=== PATIENT | female | born 1955 | race Caucasian/White ===

== ENCOUNTER 2020-09-27 13:43 | Outpatient (REF) | payer MEDICAID, SELFPAY ==
--- NOTE | ~2020-09-27 | MM_ITS ---
EXAMINATION: MM SCREENING DIGITAL BREAST TOMOSYNTHESIS, BILATERAL CLINICAL INFORMATION: Screening. Asymptomatic. The lifetime risk of breast cancer based on the Tyrer-Cuzick Model is 4.40%. COMPARISON: Mammography: February 04, 2018 and studies dating back to June 12, 2011 TECHNIQUE: Digital breast tomosynthesis is performed in both the craniocaudal and mediolateral oblique views along with computer-aided detection (CAD). Synthesized 2D images are generated from the tomosynthesis. FINDINGS: There are scattered areas of fibroglandular density (ACR BI-RADS breast composition Category b). There are no significant masses, abnormal calcifications, or other abnormalities. MM/MM tomosynthesis screening BI IMPRESSION: There are no significant changes from prior study. ASSESSMENT: BI-RADS 1: Negative RECOMMENDATION: Routine annual mammography screening. This patient's information was entered into a reminder system with a target due date for their next mammogram.
== END 2020-09-27 13:44 | disposition home or self-care (01) ==
LOC: HO.MAMMO 13:43
PROVIDERS: Visit Provider Internal Medicine
DX: Z12.31 Encounter for screening mammogram for malignant neoplasm of breast (principal)
CPT/HCPCS: 77063; 77067

== ENCOUNTER 2021-10-02 14:11 | Outpatient (REF) | payer MEDICAID, SELFPAY ==
--- NOTE | ~2021-10-02 | MM_ITS ---
EXAMINATION: MM SCREENING DIGITAL BREAST TOMOSYNTHESIS, BILATERAL CLINICAL INFORMATION: Screening. Asymptomatic. The lifetime risk of breast cancer based on the Tyrer-Cuzick Model is 5%. COMPARISON: Mammography: 09/27/2020, 02/04/2018, 01/21/2017 TECHNIQUE: Digital breast tomosynthesis is performed in both the craniocaudal and mediolateral oblique views along with computer-aided detection (CAD). Synthesized 2D images are generated from the tomosynthesis. FINDINGS: There are scattered areas of fibroglandular density (ACR BI-RADS breast composition Category b). There are no significant masses, abnormal calcifications, or other abnormalities. There is stable regional parenchymal asymmetry posterior 11:00 left breast and also upper outer left breast similar to prior studies. There is no developing density or interval architectural abnormality. The axilla and skin contours are unremarkable. MM/MM tomosynthesis screening BI IMPRESSION: No significant changes from prior studies. ASSESSMENT: BI-RADS 2: Benign RECOMMENDATION: Routine annual mammography screening. This patient's information was entered into a reminder system with a target due date for their next mammogram.
== END 2021-10-02 14:12 | disposition home or self-care (01) ==
LOC: HO.MAMMO 14:11
PROVIDERS: PCP Internal Medicine; Visit Provider Internal Medicine
DX: Z12.31 Encounter for screening mammogram for malignant neoplasm of breast (principal)
CPT/HCPCS: 77063; 77067

== ENCOUNTER 2022-10-10 14:41 | Outpatient (REF) | payer OTHER, SELFPAY ==
--- NOTE | ~2022-10-10 | MM_ITS ---
EXAMINATION: MM SCREENING DIGITAL BREAST TOMOSYNTHESIS, BILATERAL CLINICAL INFORMATION: Screening. Asymptomatic. The lifetime risk of breast cancer based on the Tyrer-Cuzick Model is 6%. COMPARISON: Mammography: 10/02/2021, 09/27/2020, 02/04/2018 TECHNIQUE: Digital breast tomosynthesis is performed in both the craniocaudal and mediolateral oblique views along with computer-aided detection (CAD). Synthesized 2D images are generated from the tomosynthesis. FINDINGS: The breasts are heterogeneously dense, which may obscure small masses (ACR BI-RADS breast composition Category c). Parenchymal pattern is similar to prior studies and there is no developing density or architectural abnormality. There are scattered minor asymmetries similar to prior studies. Bilateral vascular calcifications and scattered benign round and rim calcifications are again noted. There are no significant masses, abnormal calcifications, or other abnormalities. The axilla and skin contours are unremarkable. MM/MM tomosynthesis screening BI IMPRESSION: No mammographic evidence of malignancy. ASSESSMENT: BI-RADS 2: Benign RECOMMENDATION: Routine annual mammography screening. This patient's information was entered into a reminder system with a target due date for their next mammogram.
== END 2022-10-10 14:42 | disposition home or self-care (01) ==
LOC: HO.MAMMO 14:41
PROVIDERS: PCP Internal Medicine; Visit Provider Internal Medicine
DX: Z12.31 Encounter for screening mammogram for malignant neoplasm of breast (principal)
CPT/HCPCS: 77063; 77067

== ENCOUNTER 2022-10-24 11:26 | Outpatient (REF) | payer OTHER, SELFPAY ==
--- NOTE | ~2022-10-24 | XR_ITS ---
EXAMINATION: XR FOOT, RIGHT CLINICAL INFORMATION: Pain COMPARISON: None available. TECHNIQUE: AP, lateral, and oblique views of the right foot. FINDINGS: Bone alignment is normal. No fracture or dislocation. Small osteophytes at the first MTP joint and navicular cuneiform joint. Small plantar calcaneal spur. Soft tissue arterial calcification. XR/XR foot RT min 3V IMPRESSION: Mild degenerative changes. Some atherosclerotic disease.
== END 2022-10-24 11:27 | disposition home or self-care (01) ==
LOC: HO.HHCX 11:26
PROVIDERS: Visit Provider Internal Medicine
DX: M79.671 Pain in right foot (principal)
CPT/HCPCS: 73630

== ENCOUNTER 2023-02-12 11:34 | Outpatient (REF) | payer OTHER, SELFPAY ==
--- NOTE | ~2023-02-12 | XR_ITS ---
EXAMINATION: XR SHOULDER, RIGHT CLINICAL INFORMATION: Right shoulder arthritis COMPARISON: None available. TECHNIQUE: AP external rotation, Grashey, scapular Y, and axillary views of the right shoulder. FINDINGS: There is moderate hypertrophic osteoarthritis of acromioclavicular joint. Glenohumeral joint is normal. Surrounding bone and soft tissues unremarkable.. XR/XR shoulder RT min 2V IMPRESSION: Degenerative changes of the right shoulder.
== END 2023-02-12 11:35 | disposition home or self-care (01) ==
LOC: HO.HHCX 11:34
PROVIDERS: Visit Provider Internal Medicine
DX: M19.011 Primary osteoarthritis, right shoulder (principal)
CPT/HCPCS: 73030

== ENCOUNTER 2023-02-26 08:27 | Day surgery (SDC) | payer OTHER, SELFPAY ==
--- NOTE | 2023-02-25 09:54 | P.CONAN_ITS ---
Documented by User: Ale Argueta NP 02/25/23 09:56 HPI - Anesthesia Eval Consult details Narrative: 67yo F for Upper Endoscopy and Colonoscopy [facility] Past Medical History Medical History Hyperlipemia Hx of diabetes mellitus GERD (gastroesophageal reflux disease) CVA (cerebral vascular accident) Asthma HTN (hypertension) Surgical History Surgical History History of section Tubal ligation status Social History Social History Patient Tobacco Use Status: Former Tobacco user Substance Use Frequency: Occasionally Are you DNR?: No Advance Directives: No Advance Directives Information Provided: Yes Nutrition Risks: No Nutritional Risk Meds Allergies Allergy/AdvReac Type Severity Reaction Status Date / Time No Known Allergies Allergy Unverified 02/18/20 16:31 [No Known Allergies*] Home Medications Medication Instructions Recorded Confirmed Last Taken Type aspirin 81 mg chewable tablet 1 tab PO DAILY 02/25/23 02/25/23 Unknown History chlorthalidone 25 mg tablet 25 mg PO DAILY 02/25/23 02/25/23 Unknown History cholecalciferol (vitamin D3) 1,250 1,250 mcg PO QWEEK 02/25/23 02/25/23 Unknown History mcg (50,000 unit) capsule ezetimibe 10 mg tablet 10 mg PO DAILY 02/25/23 02/25/23 Unknown History insulin aspart U-100 100 unit/mL 10 unit subcut TID 02/25/23 02/25/23 Unknown History (3 mL) subcutaneous pen (Novolog FlexPen U-100 Insulin aspart) insulin glargine 100 unit/mL (3 unit subcut 02/25/23 Unknown History mL) subcutaneous pen (Lantus Solostar U-100 Insulin) lisinopril 40 mg tablet 40 mg PO DAILY 02/25/23 02/25/23 Unknown History metoprolol succinate 25 mg 25 mg PO DAILY 02/25/23 02/25/23 02/26/23 History tablet,extended release 24 hr pioglitazone 45 mg tablet 45 mg PO DAILY 02/25/23 02/25/23 Unknown History rosuvastatin 40 mg tablet 40 mg PO DAILY 02/25/23 02/25/23 Unknown History sertraline 50 mg tablet 50 mg PO QAM 02/25/23 02/25/23 Unknown History Exam Exam Date and Time: February 25, 2023 0954 Assessment and Plan Assessment Anesthesia Assessment: Chart Reviewed Documented by User: Homer Beach MD 02/26/23 16:22 [facility] Past Medical History Medical History Hyperlipemia Hx of diabetes mellitus GERD (gastroesophageal reflux disease) CVA (cerebral vascular accident) Asthma HTN (hypertension) Functional capacity: independent ambulation Family History Family history of problems with anesthesia: No Surgical History Surgical History History of section Tubal ligation status History of Problems with Anesthesia: No Social History Social History Patient Tobacco Use Status: Former Tobacco user Substance Use Frequency: Occasionally Are you DNR?: No Advance Directives: No Advance Directives Information Provided: Yes Nutrition Risks: No Nutritional Risk Meds Allergies Allergy/AdvReac Type Severity Reaction Status Date / Time No Known Allergies Allergy Unverified 02/18/20 16:31 [No Known Allergies*] Home Medications Medication Instructions Recorded Confirmed Last Taken Type aspirin 81 mg chewable tablet 1 tab PO DAILY 02/25/23 02/25/23 Unknown History chlorthalidone 25 mg tablet 25 mg PO DAILY 02/25/23 02/25/23 Unknown History cholecalciferol (vitamin D3) 1,250 1,250 mcg PO QWEEK 02/25/23 02/25/23 Unknown History mcg (50,000 unit) capsule ezetimibe 10 mg tablet 10 mg PO DAILY 02/25/23 02/25/23 Unknown History insulin aspart U-100 100 unit/mL 10 unit subcut TID 02/25/23 02/25/23 Unknown History (3 mL) subcutaneous pen (Novolog FlexPen U-100 Insulin aspart) insulin glargine 100 unit/mL (3 unit subcut 02/25/23 Unknown History mL) subcutaneous pen (Lantus Solostar U-100 Insulin) lisinopril 40 mg tablet 40 mg PO DAILY 02/25/23 02/25/23 Unknown History metoprolol succinate 25 mg 25 mg PO DAILY 02/25/23 02/25/23 02/26/23 History tablet,extended release 24 hr pioglitazone 45 mg tablet 45 mg PO DAILY 02/25/23 02/25/23 Unknown History rosuvastatin 40 mg tablet 40 mg PO DAILY 02/25/23 02/25/23 Unknown History sertraline 50 mg tablet 50 mg PO QAM 02/25/23 02/25/23 Unknown History Exam Airway Mallampati Class: IV Loose/Missing/Broken Teeth: Yes (poor dentition overall , multiple chipped teeth ) Assessment and Plan Assessment Anesthesia Assessment: Anesthesia Plan Discussed Final Anesthetic Review Family History of Problems with Anesthesia: No History of Problems with Anesthesia: No NPO: Yes ASA Class: III Final Preanesthetic Review: Meds/Allgs Chart Reviewed, Consent Obtained/Reviewed and Anes Risks/Benef Reviewed Patient Risk: Intermediate Procedure Risk: Intermediate Anesthetic Plan Anesthetic Plan: MAC: and Agree w/ Assess. and Plan Disposition: Standard PACU
[2023-02-26 09:53] VITALS: BMI 33.7
[2023-02-26] MEDS: Lactated Ringers 1,000 ML 100 ML IVCONT (10:07)
[2023-02-26 10:10] VITALS: BP 146/69; PULSE 65; RESP 18; TEMP 36.6; O2SAT 99
[2023-02-26 10:13] LABS: Glucose, Whole Blood 101 mg/dL (60-115)
--- NOTE | 2023-02-26 11:32 | MHC.SHP ---
Pre-Procedural Eval Section A Date of Service: 02/26/23 Section B Chief Complaint: GERD, Constipation, unspecified Details of Present Illness: see H&P no chaanges Relevant Family History (Specify if Yes): No Relevant Social History: None Present Medications: see Short Stay Collaborative assessment Medical History: No relevant PMH History of Previous Operations: No relevant previous surgery Allergies: Allergies Allergy/AdvReac Type Severity Reaction Status Date / Time No Known Allergies Allergy Unverified 02/18/20 16:31 [No Known Allergies*] Review of Systems Sugical H&P ROS: Negative: Constitution, Cardiovascular, Respiratory, Neurological, Psychiatric, Hem-Onc, Allergic/Immunologic, Gastrointestinal, Genitourinary, Musculoskeletal, Integumentary, Endocrine and Eyes/Ears/Nose/Throat Exam Surgical H&P Exam: Normal: HEENT, Normal: Heart, Normal: Lungs, Normal: Extremities, Normal: Abdomen, Normal: Skin and Normal: Neurological Plan Diagnosis/Plan: Unchanged I have reviewed the history and physical and performed a pertinent physical examination on my patient. No changes have occurred unless specified. Time Spent With Patient Time: Total time managing care of this patient today ____ minutes.
--- NOTE | 2023-02-26 12:28 | P.BOP_ITS ---
Brief Operative Note Date of Service: 02/26/23 Procedure: egd colon Surgeon: Brady Rodas Anesthesia: MAC Was an Cloth Bleaching Range Back Tender used for this Procedure?: No Estimated blood loss (mL): 2 Pathology: other Condition: stable Disposition: PACU
[2023-02-26 12:35] VITALS: BP 119/52; PULSE 77; RESP 15; TEMP 36.6; O2SAT 99
[2023-02-26 12:51] VITALS: BP 148/68; PULSE 84; RESP 15; O2SAT 99
[2023-02-26 13:06] VITALS: BP 131/56; PULSE 87; RESP 16; TEMP 36.6; O2SAT 98
--- NOTE | 2023-02-26 13:28 | OP_ITS ---
DATE OF SERVICE: 02/26/2023 SURGEON: Brady Rodas MD INDICATIONS: 1. Gastroesophageal reflux disease. 2. Constipation. 3. Weight loss. PREOPERATIVE DIAGNOSIS: POSTOPERATIVE DIAGNOSIS: PROCEDURE PERFORMED: Upper endoscopy with biopsy, colonoscopy to the terminal ileum with biopsy. ESTIMATED BLOOD LOSS: COMPLICATIONS: ANESTHESIA: Monitored anesthesia care. ASSISTANTS: SPECIMENS: DESCRIPTION OF PROCEDURE: A history and physical was performed. The risks and benefits of the procedure were explained to the patient. Informed consent was obtained. The patient was placed in the left lateral decubitus position. The Olympus video gastroscope was introduced into the esophagus, stomach, and duodenum. Examination was performed. The scope was removed. She was repositioned for colonoscopy. A digital rectal exam was performed and was found to be normal. The Olympus pediatric video colonoscope was introduced into the rectum and advanced to the cecum. The cecum was identified by transillumination, palpation, and identification of ileocecal valve. Examination was performed. The scope was removed. She tolerated both procedures well and was returned to the recovery area in stable condition. FINDINGS: Upper endoscopy: 1. Esophagus: The esophagus was normal. Biopsies were obtained from the EG junction. 2. Stomach: The stomach showed mild gastritis with some mild erythema present throughout the body. Biopsies were obtained from the antrum. 3. Duodenum: The bulb and 2nd portion were normal, and the duodenal biopsies were obtained. Colonoscopy: The terminal ileum was normal. The visualized colonic mucosa was normal. Two polyps measuring less than 5 mm were removed with biopsy forceps. These were located at 30 cm, and in the rectum. Retroflexed examination showed internal hemorrhoids. IMPRESSION: 1. Gastroesophageal reflux disease. 2. Gastritis. 3. Colon polyps. RECOMMENDATION: Follow up the biopsy results. MD ISHAN Cruz/MAXINE / [id number] [place]
== END 2023-02-26 13:35 | disposition home or self-care (01) ==
PROVIDERS: PCP Internal Medicine; Visit Provider Internal Medicine Gastroenterology
PROC: (CPT 45380; principal; 2023-02-26 10:20)
DX: K59.00 Constipation, unspecified (principal); K63.5 Polyp of colon; K62.1 Rectal polyp; K21.9 Gastro-esophageal reflux disease without esophagitis; K29.70 Gastritis, unspecified, without bleeding; I10 Essential (primary) hypertension; E78.5 Hyperlipidemia, unspecified; E11.9 Type 2 diabetes mellitus without complications; E55.9 Vitamin D deficiency, unspecified; R63.4 Abnormal weight loss; Z68.33 Body mass index [BMI] 33.0-33.9, adult; Z86.73 Personal history of transient ischemic attack (TIA), and cerebral infarction without residual deficits; Z79.4 Long term (current) use of insulin; Z79.82 Long term (current) use of aspirin; Z79.899 Other long term (current) drug therapy
CPT/HCPCS: 45380; 43239; 82947; 88305; 88342; J2371; J3010

== ENCOUNTER 2023-03-04 10:22 | Outpatient (AMB) | payer OTHER, SELFPAY ==
--- NOTE | 2023-03-04 10:40 | A.OFFVIS_ITS ---
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 She reports that when she moves her shoulder she is having a cracking/popping in the collar bone, this is not painful. She does reports pin in the elbow and forearm when waking up in the morning. 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 She is unsure why she is here today, and denies any pain. She has mild pain with overhead activity [facility] Medical History (Updated 03/04/23 @ 11:03 by Ismael Coker) Hyperlipemia Hx of diabetes mellitus GERD (gastroesophageal reflux disease) CVA (cerebral vascular accident) Asthma HTN (hypertension) Surgical History History of section Tubal ligation status Social History Patient Tobacco Use Status: Former Tobacco user Review of Systems Const All systems reviewed & are unremarkable except as noted in HPI and below Physical Exam Vital Signs: BMI result Body Mass Index 32.4 Const General: no acute distress, alert and awake Orientation/consciousness: patient oriented x3 HEENT Head: Yes normocephalic and Yes atraumatic Eyes EOM: EOMs intact bilaterally Resp Effort & Inspection: normal respiratory effort and able to speak in complete sentences Cardio Jugular venous distension: no JVD Skin General skin exam: turgor normal Rashes: no rashes Neuro General: patient oriented x3 Extrem Other: Right Shoulder: No TTP Full ROM Psych Appearance: grossly normal Affect: normal affect Attitude: cooperative Results Reviewed Results Reviewed: I personally reviewed relevant radiographs. Degenerative changes of the right AC joint. Otherwise unremarkable radiographs Assessment & Plan Assessment & Plan (1) Osteoarthritis of right shoulder: Code(s): M19.011 - Primary osteoarthritis, right shoulder Plan: This is a 67 year old woman with right shoulder ACJ OA & complaints of occasional clicking. She has no reproduceable pain and no restrictions to her function. She denies any prior treatment. No acute intervention warranted. Plan Scribed for Trevon Rios MD by Ismael Coker, medical imaging tech, on 03/04/23 at 1 1:05 AM, EST. Coding Level of Care Code New Pt Level 3 (06191) Diagnoses Osteoarthritis of right shoulder M19.011
[2023-03-04 10:42] VITALS: BMI 32.4
== END 2023-03-04 11:15 | disposition home or self-care (01) ==
PROVIDERS: PCP Internal Medicine; Visit Provider Orthopaedic Surgery
DX: M19.011 Primary osteoarthritis, right shoulder (principal)
CPT/HCPCS: 99203

== ENCOUNTER → 2023-03-04 10:22 | Outpatient (BNVA) | payer OTHER, SELFPAY | PROVIDERS: PCP Internal Medicine; Visit Provider Orthopaedic Surgery ==

== ENCOUNTER 2023-10-16 13:56 | Outpatient (REF) | payer OTHER, SELFPAY | END 2023-10-16 13:57 | disposition home or self-care (01) | LOC: HO.MAMMO 13:56 | PROVIDERS: PCP Internal Medicine; Visit Provider Internal Medicine | DX: Z12.31 Encounter for screening mammogram for malignant neoplasm of breast (principal) | CPT/HCPCS: 77063; 77067 ==

== ENCOUNTER → 2023-10-16 14:45 | Outpatient (BNV) | payer OTHER, SELFPAY | PROVIDERS: PCP Internal Medicine; Visit Provider Radiology Diagnostic Radiology | DX: Z12.31 Encounter for screening mammogram for malignant neoplasm of breast (principal) | CPT/HCPCS: 77063; 77067 ==

== ENCOUNTER 2024-01-31 08:03 | Outpatient (REF) | payer OTHER, SELFPAY ==
[2024-01-31 12:21] LABS: Creatinine Urine 157.12 mg/dL; Microalbum/Creatinine Ratio Ur 16.5 ug/mg cr (<30)
[2024-01-31 12:28] LABS: Anion Gap 11 (12-20); Blood Urea Nitrogen 24 mg/dL (9-16); Calcium 10.2 mg/dL (8.4-10.2); Carbon Dioxide 26 mmol/L (22-29); Chloride 106 mmol/L (96-108); Cholesterol 112 mg/dL (<200); Estimated Glomerular Filt Rate 47; Glucose Random 119 mg/dL (60-115); HDL Cholesterol 32 mg/dL (>40); LDL Cholesterol Calculated 56 mg/dL (<100); Potassium 4.2 mmol/L (3.3-5.1); Sodium 139 mmol/L (135-145); Triglycerides 120 mg/dL (<150)
[2024-01-31 12:29] LABS: TSH reflex Free T4 2.26 uIU/mL (0.32-4.0); Vitamin D 25-OH Total 64.8 ng/mL (>30)
[2024-01-31 14:20] LABS: Reflex LDLD? No
== END 2024-01-31 08:04 | disposition home or self-care (01) ==
LOC: HO.HHCL 08:03
PROVIDERS: Visit Provider Internal Medicine
DX: E11.65 Type 2 diabetes mellitus with hyperglycemia (principal); Z79.4 Long term (current) use of insulin; I10 Essential (primary) hypertension; M46.1 Sacroiliitis, not elsewhere classified; F33.41 Major depressive disorder, recurrent, in partial remission
CPT/HCPCS: 36415; 80048; 80061; 82043; 82306; 82570; 84443

== ENCOUNTER 2025-05-21 11:42 | Outpatient (REF) | payer OTHER, SELFPAY ==
--- NOTE | ~2025-05-21 | MM_ITS ---
EXAMINATION: MM SCREENING DIGITAL BREAST TOMOSYNTHESIS, BILATERAL CLINICAL INFORMATION: Screening. Asymptomatic. COMPARISON: Mammography: Comparison is made with available priors TECHNIQUE: Digital breast mammography with tomosynthesis is performed in both the craniocaudal and mediolateral oblique views along with computer-aided detection (CAD). FINDINGS: The breasts are heterogeneously dense, which may obscure small masses. There are no significant masses, abnormal calcifications, or other abnormalities. MM/MM tomosynthesis screening BI IMPRESSION: No mammographic evidence of malignancy. ASSESSMENT: BI-RADS Category 1: Negative RECOMMENDATION: Routine annual mammography screening. 1 year F/U This examination should not preclude the clinical evaluation of a suspicious palpable abnormality. This patient's information was entered into a reminder system with a target due date for their next mammogram. Electronically signed by: Rosalia Conner DO 05/25/2025 10:29 AM JOANN
--- OUTSIDE RECORDS SUMMARY | 2025-05-21 13:48 | XMS_ITS | Patient Health Record ---
Author Organization [facility] Address [address] [place] [address] Care Team Providers Care Casting And Curing Operator Name Role Phone Janell RIVERA, Hazel Primary Care Provider Unavail able Brady Rodas Jr Unavailable Allergies No Known Allergies Reason For Referral No Information Medications Medication SIG (Take, Route, Frequency, Duration) Notes Start Date End Date Status Rosuvastatin Calcium 40 MG Tablet 1 tablet Orally Once a day Unknown Lantus 100 UNIT/ML Solution 52units Subc utaneous as directed Unknown NovoLOG FlexPen 100 UNIT/ML Solution Pen-injector as directed Subcutaneous as directed Unknown Lisinopril 40 MG Tablet 1 tablet Orally Once a day Unknown Aspir-81 81 MG Tablet Delayed Release 1 tablet Orally Once a day Unknown ARIPiprazole 2 MG Tablet 1 tablet Orally Once a day Unknown FLUoxetine HCl 20 MG Capsule 2capsule Orally Once a day Unknown Rosuvastatin Calcium 40 MG Tablet TAKE 1 TABLET BY MOUTH AT BEDTIME Oral; Duration: 30 Days Active Pioglitazone HCl 45 MG Tablet TAKE 1 TABLET BY MOUTH ONCE DAILY Oral; Duration: 30 Days Active Lantus SoloStar 100 UNIT/ML Solution Pen-injector INJECT 65 UNITS UNDER THE SKIN ONCE DAILY AT BEDTIME Subcutaneous; Duration: 27 Days Active Ezetimibe 10 MG Tablet TAKE 1 TABLET BY MOUTH IN THE MORNING Oral; Duration: 30 Days Active Vitamin D3 1.25 MG (33692 UT) Capsule TAKE 1 CAPSULE BY MOUTH EVERY WEEK Oral; Duration: 28 Days Active Lisinopril 40 MG Tablet TAKE 1 TABLET BY MOUTH ONCE DAILY Oral; Duration: 30 Days Active Vitamin D 50 MCG (2000 UT) Tablet 1 tablet Orally Once a day; Duration: 30 day(s) Unknown Chlorthalidone 25 MG Tablet Oral; Duration: 30 Days Active Pioglitazone HCl 45 MG Tablet Oral; Duration: 30 Days Acti ve Rosuvastatin Calcium 40 MG Tablet Oral; Duration: 30 Days Acti ve Aspirin Low Dose 81 MG Tablet Chewable CHEW ONE TABLET BY MOUTH ONCE DAILY Oral; Duration: 30 Days Active Lantus SoloStar 100 UNIT/ML Solution Pen-injector Subcutaneous; Duration: 27 Days Active Ezetimibe 10 MG Tablet Oral; Duration: 30 Days Active Lisinopril 40 MG Tablet Oral; Duration: 30 Days Active Omeprazole 20 MG Capsule Delayed Release TAKE ONE CAPSULE BY MOUTH IN THE MORNING; Duration: 30 Unknown Metoprolol Succinate ER 25 MG Tablet Extended Release 24 Hour 1 tablet Orally Once a day Unknown NovoLOG FlexPen 100 UNIT/ML Solution Pen-injector Subcutaneous; Duration: 30 Days Active Famotidine 20 MG Tablet 1 tablet at bedt kelley as needed Orally Twice a day; Duration: 30 day(s) 02/06/2024 Unknown Immunizations Vaccine Route Administration Date Status Comme nts Influenza Unknown 03/03/2018 Administered Influenza Unknown 03/03/2019 Administered Influenza Unknown 04/24/2022 Administered Influenza Unknown 03/17/2024 Administered Social History Social History Additional Details Category Social Info Options Details Miscellaneous: Marital status: single Occupation: unemployed Problems Problem Type SNOMED Code ICD Code Onset Dates Problem Status W/U Status Risk Notes Problem Gastro-esophageal reflux disease without esophagitis (888327587) Gastro-esophageal reflux disease without esophagitis (K21.9) Active confirmed Problem Constipation (70573149) Constipation (K59.00) Active confirmed Problem Weight loss (312587003) Weight loss (R63.4) Active confirmed Problem Gastroesophageal reflux disease (779041526) Gastroesophageal reflux disease (K21.9) Active confirmed Problem Gastroesophageal reflux disease without esophagitis (576252253) Gastroesophageal reflux disease without esophagitis (K21.9) Active confirmed Problem Gas (36322293) Gas (R14.3) Active confirmed Problem Constipation (44556684) Constipation, unspecified constipation type (K59.00) Active confirmed Problem Benign neoplasm of colon (84766843) Polyp of colon, unspecified part of colon, unspecified type (K63.5) Active confirmed Problem Skin sensation disturbance (87379895) Rectal burning (R20.8) Active confirmed Vital Signs Temperature 99.3 degrees Fahrenheit 02/04/2025 Blood pressure diastolic 01 mm Hg 02/04/2025 Height 63 in 02/04/2025 Blood pressure systolic 001 mm Hg 02/04/2025 Weight 185.4 lbs 02/04/2025 BMI 32.84 kg/m2 02/04/2025 Encounters Encounter Location Date Provider Diagnosis [facility] [address] [place] [address] [address] [place] [address] 02/04/2025 Brady Rodas Jr Gastro-esophageal reflux disease without esophagitis K21.9 and Constipation, unspecified constipation type K59.00 [facility] [address] [place] [address] [address] [place] [address] 02/04/2025 Brady Rodas Jr Assessments Encounter Date Diagnosis (ICD Code) Assessment Notes Treatment Notes Treatment Clinical Notes Section Notes 02/04/2025 Gastro-esophagea l reflux disease without esophagitis (ICD-10 - K21.9) We discussed gastroesophageal reflux disease today. We discussed diet, lifestyle modifications, and weight management regarding the treatment of reflux. She will continue her present regimen and use OTC antacids for breakthrough symptoms. Follow-up will be in 1 year. For her constipation symptoms we recommended use of MiraLAX. We discussed how to use this to produce bowel movements that are not hard to pass. She can also supplement with Metamucil. Follow-up will be in 1 year. 02/04/2025 Constipation, unspecified constipation type (ICD-10 - K59.00) We discussed gastroesophageal reflux disease today. We discussed diet, lifestyle modifications, and weight management regarding the treatment of reflux. She will continue her present regimen and use OTC antacids for breakthrough symptoms. Follow-up will be in 1 year. For her constipation symptoms we recommended use of MiraLAX. We discussed how to use this to produce bowel movements that are not hard to pass. She can also supplement with Metamucil. Follow-up will be in 1 year. Plan Of Treatment Future Test Test Name Order Date COLONOSCOPY 02/20/2013 UPPER GI ENDOSCOPY 12/31/2022 COLONOSCOPY 12/31/2022 Next Appt Details Provider Name:Brady vargas Jr, 02/10/2026 01:15:00 PM, [address], [address], [place], [address], Insurance Providers Payer Name Payer Address Payer Phone Subscriber Number Group Number Insured Name Patient Relationship to Insured Coverage Start Date Coverage End Date [facility] [address] Attn Claims Naima CHACHA [id number] BERNARD SUNG Self - patient is the insured Medical (General) History Medical History History ICD Code left cerebellar infarct Diabetes mellitus type 2 hypertension vitamin D deficiency Gastroesophageal reflux dise ase, EGD 02/23, no H. pylori, Lam's esophagus, or celiac disease Anxiety/depression Hyperlipidemia urinary incontinence Colonoscopy 02/23, to non-adenomatous naty yps. Ten-year followup Surgical History Surgery Date(Month/Year) tubal ligation section
--- OUTSIDE RECORDS SUMMARY | 2025-05-21 13:48 | XMS_ITS | Clinical Summary ---
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 Modality Breast Bilateral Mammography 10/16/2023 2:16 PM EDT Narrative 10/29/2023 10:46 AM EDT [address] [place] [address] Mammography Report Signed Patient: Roxann Monterroso MR#: [id number] : 1955 Acct:[id number] Age/Sex: 68 / F ADM Date: 10/16/23 Loc: HO.MAMMO Attending Dr: Hazel Maciel MD Ordering Physician: Hazel Maciel MD Results: 1Ne gative Date of Service: 10/16/23 Follow Up: 1 Year From Orig inal Mammogram Procedure(s): MM tomosynthesis screening BI Accession Number(s): [id number] cc: Hazel Maciel MD EXAMINATION: MM SCREENING DIGITAL BREAST TOMOSYNTHESIS, BILATERAL CLINICAL INFORMATION: Screening. Asymptomatic. COMPARISON: Mammography: This study is compared with prior exams dating back to 2018. TECHNIQUE: Digital breast tomosynthesis is performed in both the craniocaudal and mediolateral oblique views along with computer-aided detection (CAD). Synthesized 2D images are generated from the tomosynthesis. FINDINGS: The breasts are heterogeneously dense, which may obscure small masses (ACR BI-RADS breast composition Category c). There are no significant masses, abnormal calcifications, or other abnormalities. MM/MM tomosynthesis screening BI IMPRESSION: No mammographic evidence of malignancy. ASSESSMENT: BI-RADS BI-RADS 1 - Negative RECOMMENDATION: Routine annual mammography screening. 1 year F/U This examination should not preclude the clinical evaluation of a suspicious palpable abnormality. This patient's information was entered into a reminder system with a target due date for their next mammogram. Dictated By: Pepper Uriarte MD Signed By: <Electronically signed by Pepper Uriarte MD in OV> 10/29/23 1042 DD/ 1416 TD/TT: Structural Worker: Procedure Note Donotuseinterpreter, Image - 10/29/[address] [place] [address] Mammography Report Signed Patient: Aarti MonterrosoR#: [id number] : 8Acct:[id number] Age/Sex: 68 / FADM Date: 10/16/23 Loc: HO.MAMMO Attending Dr: Hazel Maciel MD Ordering Physician: Hazel Maciel MDResults: 1Ne gatreal Date of Service: 10/16/23Follow Up: 1 Year From Orig ina Mammogram Procedure(s): MM tomosynthesis screening BI Accession Number(s): [id number] cc: Hazel Maciel MD EXAMINATION: MM SCREENING DIGITAL BREAST TOMOSYNTHESIS, BILATERAL CLINICAL INFORMATION: Screening. Asymptomatic. COMPARISON: Mammography: This study is compared with prior exams dating back to 2018. TECHNIQUE: Digital breast tomosynthesis is performed in both the craniocaudal and mediolateral oblique views along with computer-aided detection (CAD). Synthesized 2D images are generated from the tomosynthesis. FINDINGS: The breasts are heterogeneously dense, which may obscure small masses (ACR BI-RADS breast composition Category c). There are no significant masses, abnormal calcifications, or other abnormalities. MM/MM tomosynthesis screening BI IMPRESSION: No mammographic evidence of malignancy. ASSESSMENT: BI-RADS BI-RADS 1 - Negative RECOMMENDATION: Routine annual mammography screening. 1 year F/U This examination should not preclude the clinical evaluation of a suspicious palpable abnormality. This patient's information was entered into a reminder system with a target due date for their next mammogram. Dictated By: Pepper Uriarte MD Signed By: <Electronically signed by Pepper Uriarte MD in OV> 10/29/23 1042 DD/ 1416 TD/TT: Structural Worker: us Hazel Maciel MD IMG BI PROCEDURES Final Result * Hm Colonoscopy (02/26/2023) Colonoscopy Normal Normal [facility] Comment:Colon polyps removed 02/26/2023 us Hazel Maciel MD HEALTH MAINTENANCE Edite d Result - Final [facility] [address] [place] [address] [phone] * Diabetes Eye Exam (12/14/2022) Eye Exam Normal Normal 12/14/2022 Result [facility] Hazel Maciel MD HEALTH MAINTENANCE Final Result from Last 3 Months or Most Recently Relevant to Health Maintenance Insurance [facility] USP OPTIONS (O D-SNP) Care Teams Credit Analysis Manager Relationship Specialty Start Date End Date Hazel Maciel MD [address] [place] [address] PCP - General Family Medicine 01/17/17
--- OUTSIDE RECORDS SUMMARY | 2025-05-21 13:48 | XMS_ITS | Encounter Summary ---
Author Organization [email or web address] Address [address] [place] [address] 7t [place] [address] Care Team Providers Care High School Band Teacher Name Role Phone Hazel Maciel MD Primary Care Provider + Encounter Details Date Type Department Care Team ([facility] st Contact Info) Description 11/20/[address] [facility] MEDICINE [address] [place] [address] Hazel Maciel MD [address] [place], [place] [phone] Social History Tobacco Use Types Packs/Day Years Used Date Smoking Tobacco: Never Smokeless Tobacco: Never Alcohol Use Standard Drinks/Week Comments Never 0 (1 standard drink = 0.6 oz pur e alcohol) Depression Answer Date Recorded Patient Health Questionnaire-2 Score 0 08/30/2022 Comments Unknown Sex and Gender Information Value Date Recorded Sex Assigned at Female 04/02/2022 10:14 AM EDT Legal Sex Female 10:14 AM EDT Gender Identity Female 04/02/2022 10:14 AM EDT Sexual Orientation Straight 04/02/2022 10 :14 AM EDT documented as of this encounter Plan of Treatment Not on file documented as of this encounter Procedures Procedure Name Priority Date/Time Associated Diagnosis Comments MAMMOGRAPHY Routine 10/12/2022 1:40 PM EDT documented in this encounter Results * Mammography (10/12/2022 1:40 PM EDT) Mammogram Birads -2 Anatomical Region Laterality Modality Other Historical Provider HEALTH MAINTENANCE Final Result documented in this encounter Visit Diagnoses Not on filedocumented in this encounter Care Teams High School Band Teacher Relationship Specialty Start Date End Date Hazel Maciel MD [address] [place] [phone] PCP - General Family Medicine 01/17/17 documented as of this encounter
--- OUTSIDE RECORDS SUMMARY | 2025-05-21 13:48 | XMS_ITS | Encounter Summary ---
Author Organization [employer] Address [address] [place] [address] 7t [place] [address] Care Team Providers Care Retail Director Name Role Phone Hazel Maciel MD Primary Care Provider + Encounter Details Date Type Department Care Team (Late st Contact Info) Description 11/15/2022 Abstract [facility] MEDICINE [address] [place] [address] Hazel Maciel MD [address] [place], [place] [phone] Social History Tobacco Use Types Packs/Day Years [...] on file documented as of this encounter Visit Diagnoses Not on filedocumented in this encounter Care Teams Retail Director Relationship Specialty Start Date End Date Hazel Maciel MD [address] [place], [place] [phone] PCP - General Family Medicine 01/17/17 documented as of this encounter
--- OUTSIDE RECORDS SUMMARY | 2025-05-21 13:48 | XMS_ITS | Encounter Summary ---
Author Organization [employer] Address [address] [place] [address] 7 [place] [address] Care Team Providers Care Portfolio Assistant Name Role Phone Hazel Maciel MD Primary Care Provider + Reason for Visit * Reason Onset Date Comments Med Refill 03/30/2025 Encounter Details Date Type Department Care Team ([facility] st Contact Info) Description 03/30/2025 Telephone [facility] MEDICINE [address] [place], [place] [phone] Hazel Maciel MD [address] [place], [place] [phone] Med Refill Social History Tobacco Use Types Packs/Day Years [...] AM EDT documented as of this encounter Miscellaneous Notes * Telephone Encounter - Regi Weber LPN - 03/30/2025 1:54 PM EDT Medication pended to PCP. * Telephone Encounter - Annel Rivera - 03/30/2025 1:52 PM EDT TC from pt requesting medication refill. Medications needing refill : - pioglitazone (Actos) 45 MG tablet To be sent to: - [facility] - [place], [place] - [phone] [place] - [address] documented in this encounter Plan of Treatment Not on file documented as of this encounter Visit Diagnoses Not on filedocumented in this encounter Additional Health Concerns Assessment Noted Time PHQ-9 Depression Total Score: 1 03/04/20 25 11:17 AM EDT documented as of this encounter Care Teams Portfolio Assistant Relationship Specialty Start Date End Date Hazel Maciel MD [address] [place] [phone] PCP - General Family Medicine 01/17/17 documented as of this encounter
--- OUTSIDE RECORDS SUMMARY | 2025-05-21 13:48 | XMS_ITS | Encounter Summary ---
Author Organization [employer] Address [address] [place] [address] [address] [place] [address] Care Team Providers Care Varnish Inspector Name Role Phone Hazel Maciel MD Primary Care Provider + Encounter Details Date Type Department Care Team (Late st Contact Info) Description 11/30/2022 Abstract [facility] MEDICINE [address] [place] [address] Jimena Marr, RN [address] [place] [address] Social History Tobacco Use Types Packs/Day Years [...] on filedocumented in this encounter Care Teams Varnish Inspector Relationship Specialty Start Date End Date Hazel Maciel MD [address] [place], [place] [phone] PCP - General Family Medicine 01/17/17 documented as of this encounter
--- OUTSIDE RECORDS SUMMARY | 2025-05-21 13:49 | XMS_ITS | Encounter Summary ---
Author Organization [employer] Address [address] [place] [address] 7t [place] [address] Care Team Providers Care Rural Service Engineer Name Role Phone Hazel Maciel MD Primary Care Provider + Reason for Visit * Reason Onset Date Comments Appointment Request 12/25/2022 Encounter Details Date Type Department Care Team ([facility] st Contact Info) Description 12/25/2022 Telephone [facility] MEDICINE [address] [place], [place] [phone] Hazel Maciel MD [address] [place], [place] [phone] Appointment Request Social History Tobacco Use Types Packs/Day Years [...] Orientation Straight 04/02/2022 10 :14 AM EDT COVID-19 Exposure Response Date Recorded In the last 10 days, have yo u been in contact with someone who was confirmed or suspected to have Coronavirus/COVID-19? No / Unsure 12/07/2022 11:26 AM EDT documented as of this encounter Miscellaneous Notes * Telephone Encounter - Garima Willam - 12/25/2022 10:47 AM EDT Tc from pt requesting a PE appointment. Please contact pt at [phone] ([place]) documented in this encounter Plan of Treatment Not on file documented as of this encounter Visit Diagnoses Not on filedocumented in this encounter Care Teams Rural Service Engineer Relationship Specialty Start Date End Date Hazel Maciel MD [address] [place] [phone] PCP - General Family Medicine 01/17/17 documented as of this encounter
--- OUTSIDE RECORDS SUMMARY | 2025-05-21 13:49 | XMS_ITS | Encounter Summary ---
Author Organization [employer] Address [address] [place] [address] [address] [place] [address] Care Team Providers Care Implementation Consultant Name Role Phone Hazel Maciel MD Primary Care Provider + Encounter Details Date Type Department Care Team (Late st Contact Info) Description 08/10/2022 Orders Only [facility] MED & PEDS [address] [place] [address] Regi Weber LPN Social History Tobacco Use Types Packs/Day Years Used Date Smoking Tobacco: Never Assessed Comments Unknown Sex and Gender Information Value [...] on filedocumented in this encounter Care Teams Implementation Consultant Relationship Specialty Start Date End Date Hazel Maciel MD [address] [place] [phone] PCP - General Family Medicine 01/17/17 documented as of this encounter
--- OUTSIDE RECORDS SUMMARY | 2025-05-21 13:49 | XMS_ITS | Encounter Summary ---
Author Organization [employer] Address [address] [place] [address] 7 [place] [address] Care Team Providers Care Assessment Manager Name Role Phone Hazel Maciel MD Primary Care Provider + Reason for Visit * Reason Onset Date Comments Nurse Triage 09/25/2024 Encounter Details Date Type Department Care Team ([facility] st Contact Info) Description 09/25/2024 Telephone [facility] MEDICINE [address] [place], [place] [phone] Hazel Maciel MD [address] [place], [place] [phone] Nurse Triage Social History Tobacco Use Types Packs/Day Years [...] Answer Date Recorded Patient Health Questionnaire-9 Score 0 11/14/2023 Patient Health Questionnaire-9 Score 0 11/14/2023 Last PHQ-9: Questionnaire Data Not on file 0 11/14/2023 Housing Stability Answer Date Recorded What is [...] Date Recorded Patient Health Questionnaire-2 Score 0 11/14/2023 Internet Access Answer Date Recorded Internet Access [...] encounter Miscellaneous Notes * Telephone Encounter - Esmer [place] RN - 09/25/2024 10:30 AM EDT Triage call with [facility] cold storage worker [place] [id number]. Pt reports bilateral leg swelling from thigh to foot. Pt reports this is chronic and PCP knows about it. Pt reports the legs are hard to the touch and ambulation is difficult at times. Pt does reports less swelling upon waking in the morning. No difficulty breathing , neg for fever or reddness. Pt requests to see PCP. ASK apt with DR. Maciel 09/29/24 @ 1130am giving ample time for Pt to schedule ride. Pt agrees with disposition. Insurance is verified as active prior to booking. Protocol Used: Leg Swelling and Edema (Adult) Protocol-Based Disposition: See in Office or Video Visit within 2 Weeks Video visit not offered Positive Triage Question: * Mild swelling of both ankles and varicose veins * All higher-acuity triage questions were negative Care Advice Discussed: * Reasons To Call Back - Swelling becomes worse - Swelling becomes red or painful to the touch - Calf pain occurs and becomes constant - You become worse * Telephone Encounter - Beronica Suzy Armstrong - 09/25/2024 8:32 AM EDT Symptom: Leg Swelling - Not From Injury, Trouble Walking Outcome: Schedule an appointment to be seen within 24 hours Reason: Caller denied all higher acuity questions The caller accepted this outcome. [phone] irish documented in this encounter Plan of Treatment Not on file documented as of this encounter Visit Diagnoses Diagnosis Varicose veins of both lower extremities with pain documented in this encounter Additional Health Concerns Assessment Noted Time PHQ-9 Depression Total Score: 0 11/14/19 24 11:27 AM EDT documented as of this encounter Care Teams Assessment Manager Relationship Specialty Start Date End Date Hazel Maciel MD [address] [place] [phone] PCP - General Family Medicine 01/17/17 documented as of this encounter
== END 2025-05-21 11:43 | disposition home or self-care (01) ==
LOC: HO.MAMMO 11:42
PROVIDERS: PCP Internal Medicine; Visit Provider Internal Medicine
DX: Z12.31 Encounter for screening mammogram for malignant neoplasm of breast (principal)
CPT/HCPCS: 77063; 77067

== ENCOUNTER → 2025-05-21 12:30 | Outpatient (BNV) | payer OTHER, SELFPAY | PROVIDERS: PCP Internal Medicine; Visit Provider Internal Medicine | DX: Z12.31 Encounter for screening mammogram for malignant neoplasm of breast (principal) | CPT/HCPCS: 77063; 77067 ==